=== PATIENT | female | born 1975 | race Hispanic/Latino ===

== ENCOUNTER 2019-02-08 08:38 | Outpatient (CLI) | payer OTHER ==
--- NOTE | 2019-02-08 14:00 | Ultrasound Report ---
ULTRASOUND GUIDED CYST ASPIRATION RIGHT BREAST: 02/08/19 09:30:00 CLINICAL: A complex cyst versus solid mass at 9 o'clock 6 cm from the nipple. COMPARISON: 01/15/19 mammogram and left breast ultrasound from [facility] [place] FINDINGS: The procedure was explained to the patient and informed consent was obtained. Ultrasound demonstrated demonstrated the previously described oval anechoic lesion at 9 o'clock 6 cm from the nipple. The skin was cleansed with Betadine and anesthetized with 1% lidocaine. An 18-gauge needle was introduced into lesion with ultrasound guidance. Less than 1.0cc of brownish fluidwas removed. The lesion showed complete collapse. The fluid was discarded. The patient tolerated the procedure well and there were no apparent complications. IMPRESSION: Uncomplicated aspiration of a benign cyst of the right breast.
--- NOTE | 2019-02-08 14:02 | Mammography Report ---
RIGHT DIGITAL DIAGNOSTIC MAMMOGRAM: 02/08/19 08:38:00 CLINICAL: Immediately status post aspiration of a benign cyst at 9 o'clock. COMPARISON:[facility] mammogram and right breast ultrasound from 01/15/19 FINDINGS: The breast is heterogeneously dense. A few benign calcifications. No mass, architectural distortion or suspicious calcification. IMPRESSION: No mammographic evidence of malignancy. Recommend routine mammographic screening. BI-RADS CATEGORY: 2 - - Benign
== END 2019-02-08 08:39 | disposition home or self-care (01) ==
LOC: SPVWC 08:38
PROVIDERS: ATTEND Surgery
DX: N60.01 Solitary cyst of right breast (principal); R92.8 Other abnormal and inconclusive findings on diagnostic imaging of breast; R92.0 Mammographic microcalcification found on diagnostic imaging of breast

== ENCOUNTER 2019-08-07 12:57 | Outpatient (CLI) | payer OTHER ==
--- NOTE | 2019-08-07 14:36 | Ultrasound Report ---
EXAMINATION: RIGHT COMPLETE BREAST ULTRASOUND, 08/07/2019 INDICATION: Follow up after benign cyst aspiration 02/08/2019 COMPARISON: 02/08/2019 ultrasound and mammogram. FINDINGS: Complete sonographic evlauation of all 4 quadrants and retroareolar region was performed. Ultrasound demonstrated too numerous to count benign cysts. The largest cyst is at 1:00 4 7 m from th e nipple and it measures 6 mm. It contains low-level internal echoes. The previously aspirated cyst a t 9:00 6 cm from the nipple is much smaller and measures 4 x 2 x 3 mm. An irregular solid hypoechoic mass at 7:00 7 cm from the nipple measures 1.7 x 0.5 x 1.5 cm.. IMPRESSION: A 1.7 cm solid mass at 7:00 7 cm from the nipple. Recommend ultrasound-guided needle core biopsy. Too numerous to count benign cysts. I discussed the findings and recommendation for biopsy with Dr. Quiroz on the day of this exam. Follow up recommendation: Biopsy BI-RADS Category 4: Suspicious for Malignancy. Signer Name: Behzad Joy MD Signed: 08/07/2019 2:32 PM Workstation Name: [id number]
== END 2019-08-07 12:58 | disposition home or self-care (01) ==
LOC: SPVIMAG 12:57
PROVIDERS: ATTEND Surgery
DX: N60.01 Solitary cyst of right breast (principal)

== ENCOUNTER 2019-08-22 14:00 | Outpatient (CLI) | payer OTHER ==
--- NOTE | 2019-08-22 15:13 | Mammography Report ---
RIGHT DIGITAL DIAGNOSTIC MAMMOGRAM CLINICAL: For clip placement after ultrasound-guided needle biopsy. COMPARISON: 02/08/2019 FINDINGS: A new biopsy clip is identified at 7:00 and correlates with today's biopsy. IMPRESSION: Concordant clip deployment. Signer Name: Behzad Joy MD Signed: 08/22/2019 3:09 PM Workstation Name: [id number]
--- NOTE | 2019-08-22 15:15 | Ultrasound Report ---
ULTRASOUND-GUIDED NEEDLE CORE BIOPSY RIGHT BREAST WITH CLIP PLACEMENT CLINICAL: Right breast mass at 7:00 7 cm from the nipple. COMPARISON: 08/07/2019 FINDINGS: The procedure was explained to the patient and informed consent was obtained. Ultrasound demonstrated the previously identified 1.8 cm mass. I marked the breast with a felt tip marker and a timeout was called. The skin was prepped with Chloro -Prep and anesthetized with 1% lidocaine. Needle core biopsy was performed through small dermatotomy using ultrasound guidance, 2% lidocaine wi th epinephrine for deep anesthesia and a 14-gauge Achieve biopsy device. 4 cores were obtained and pl aced in formalin. A clip was deployed within the mass. The patient tolerated the procedure well and there were no apparent complications. Hemostasis was ach ieved with minimal effort and a sterile dressing was applied. A post procedure mammogram demonstrated concordant clip deployment. She left the department in good c ondition and was given instructions for wound care and follow-up. IMPRESSION: Uncomplicated ultrasound guided needle core biopsy with clip placement right breast. Signer Name: Behzad Joy MD Signed: 08/22/2019 3:11 PM Workstation Name: [id number]
== END 2019-08-22 14:01 | disposition home or self-care (01) ==
LOC: SPVWC 14:00
PROVIDERS: ATTEND Surgery
DX: N63.13 Unspecified lump in the right breast, lower outer quadrant (principal); D24.1 Benign neoplasm of right breast
CPT/HCPCS: 19083; 77065; 88305; A4648